=== PATIENT | male | born 1970 | race Two or more races ===

== ENCOUNTER 2024-07-11 08:13 | Outpatient (REF) | payer OTHER, SELFPAY ==
[2024-07-11 10:30] LABS: MANUAL DIFF FLAG NO
[2024-07-11 10:50] LABS: Alanine Aminotransferase 31 U/L (0-40); Albumin Level 4.9 g/dL (3.5-5.0); Alkaline Phosphatase 52 U/L (39-117); Anion Gap 13 (12-20); Aspartate Amino Transferase 27 U/L (5-37); Bilirubin Total 0.6 mg/dL (0.0-1.0); Blood Urea Nitrogen 15 mg/dL (9-16); Calcium 10.6 mg/dL (8.4-10.2); Carbon Dioxide 27 mmol/L (22-29); Chloride 107 mmol/L (96-108); Cholesterol 187 mg/dL (<200); Estimated Glomerular Filt Rate > 60; Glucose Random 92 mg/dL (60-115); HDL Cholesterol 41 mg/dL (>40); LDL Cholesterol Calculated 112 mg/dL (<100); Potassium 4.3 mmol/L (3.3-5.1); Sodium 143 mmol/L (135-145); Total Protein 8.1 g/dL (6.5-8.0); Triglycerides 172 mg/dL (<150)
[2024-07-11 11:22] LABS: Basophils Percent Auto 0.7 % (0-2); Eosinophils Absolute Auto 0.1 X10*3/uL (0.0-0.4); Eosinophils Percent Auto 1.3 % (0-4); Hematocrit 42.7 % (42.0-52.0); Hemoglobin 14.2 g/dl (14.0-18.0); Imm Gran Abs Auto 0.01 X10*3/uL (0.00-0.03); Imm Gran Pct Auto 0.2 % (0.0-0.4); Lymphocytes Absolute Auto 1.7 X10*3/uL (1.2-4.9); Lymphocytes Percent Auto 36.7 % (20-40); Mean Corpuscular HGB Conc 33.3 g/dl (31.0-36.0); Mean Corpuscular Volume 90.3 fL (80.0-98.0); Mean Platelet Volume 10.7 fL (9.4-12.4); Monocytes Absolute Auto 0.3 X10*3/uL (0.1-1.2); Monocytes Percent Auto 7.3 % (2-11); Neutrophils Absolute Auto 2.5 x10*3/uL (2.0-8.3); Neutrophils Percent Auto 53.8 % (45-73); Platelet Count 190 X10*3/uL (160-400); Red Blood Count 4.73 X10*6/uL (4.60-5.80); Red Cell Distribution Width 13.1 % (11.0-16.0); White Blood Count 4.6 X10*3/uL (4.8-10.8)
== END 2024-07-11 08:14 | disposition home or self-care (01) ==
LOC: HO.HMGCLDS 08:13
PROVIDERS: PCP Internal Medicine; Visit Provider Internal Medicine
DX: Z00.00 Encounter for general adult medical examination without abnormal findings (principal); E78.2 Mixed hyperlipidemia; I10 Essential (primary) hypertension; N40.0 Benign prostatic hyperplasia without lower urinary tract symptoms; Z12.31 Encounter for screening mammogram for malignant neoplasm of breast; Z12.5 Encounter for screening for malignant neoplasm of prostate
CPT/HCPCS: 36415; 80053; 80061; 84153; 85025

== ENCOUNTER 2024-11-07 08:07 | Outpatient (REF) | payer OTHER, SELFPAY ==
[2024-11-07 11:19] LABS: Parathyroid Hormone Intact 35.2 pg/mL (8.7-77.1)
[2024-11-07 12:01] LABS: Calcium 9.7 mg/dL (8.4-10.2); Cholesterol 179 mg/dL (<200); HDL Cholesterol 37 mg/dL (>40); LDL Cholesterol Calculated 90 mg/dL (<100); Phosphorus 3.6 mg/dL (2.7-4.5); Triglycerides 263 mg/dL (<150); Vitamin D 25-OH Total 33.5 ng/mL (>30)
== END 2024-11-07 08:08 | disposition home or self-care (01) ==
LOC: HO.HMGCLDS 08:07
PROVIDERS: PCP Internal Medicine; Visit Provider Internal Medicine
DX: E78.2 Mixed hyperlipidemia (principal); E83.52 Hypercalcemia; Z68.26 Body mass index [BMI] 26.0-26.9, adult
CPT/HCPCS: 36415; 80061; 82306; 82310; 83970; 84100

== ENCOUNTER 2025-03-06 08:10 | Day surgery (SDC) | payer OTHER, SELFPAY ==
[2025-03-04 14:32] VITALS: BMI 26.6
--- NOTE | 2025-03-05 11:44 | P.CONAN_ITS ---
HPI - Anesthesia Eval Consult details Narrative: 54yo M for Colonoscopy [facility] Past Medical History Medical History (Updated 03/04/25 @ 14:31 by Yasmeen Barrios, RN) Hx of gastritis HLD (hyperlipidemia) Surgical History Surgical History (Updated 03/04/25 @ 14:25 by Yasmeen Barrios, RN) History of esophagogastroduodenoscopy (EGD) Social History Social History (Updated 03/04/25 @ 14:38 by Yasmeen Barrios, HORTENCIA) Patient Tobacco Use Status: Former Tobacco user Meds Allergies Allergy/AdvReac Type Severity Reaction Status Date / Time No Known Allergies Allergy Verified 03/04/25 14:27 Home Medications ?Medication ?Instructions ?Recorded ?Confirmed ?Last Taken ?Type aspirin 81 mg tablet,delayed 81 mg PO DAILY 03/04/25 03/04/25 Unknown History release omega 2-zst-mlk-fish oil 1,000 mg 1 cap PO TID 03/04/25 03/04/25 Unknown History (120 mg-180 mg) capsule (Fish Oil) rosuvastatin 20 mg tablet 20 mg PO BEDTIME 03/04/25 03/04/25 Unknown History Exam Height,Weight and Vital Signs: Height 5 ft 8 in Weight 79.379 kg Assessment and Plan Assessment Anesthesia Assessment: Chart Reviewed
[2025-03-06 08:19] VITALS: BMI 25.8
[2025-03-06 08:28] VITALS: BP 110/65; PULSE 66; RESP 16; TEMP 36.4; O2SAT 97
[2025-03-06] MEDS: Lactated Ringers 1,000 ML 100 ML IVCONT (08:40)
[2025-03-06 11:03] VITALS: BP 90/53; PULSE 61; RESP 16; TEMP 36.3; O2SAT 96
--- NOTE | 2025-03-06 11:09 | PM.OP ---
Brief Operative Note Date of Service: 03/06/25 Pre-op diagnosis: Screening Post-op diagnosis: other (Colon polyps) Procedure: Colonoscopy to the cecum and TI with hot snare polypectomy at 40cm and cold snare polypectomy at 20cm Surgeon: Everton Dixon MD Anesthesia: MAC Was an Coper Hand used for this Procedure?: No Estimated blood loss (mL): 2.0 Pathology: other (A. Polyp at 40cm B. Polyp at 20cm) Condition: stable Disposition: PACU
[2025-03-06 11:16] VITALS: BP 92/59; PULSE 53; RESP 16; TEMP 36.1; O2SAT 96
--- NOTE | 2025-03-06 11:23 | OP_ITS ---
DATE OF SERVICE: 03/06/2025 SURGEON: Everton Dixon MD INDICATIONS: The patient presents for evaluation of colorectal cancer screening. Full consent has been obtained from him for this, including risks of bleeding and perforation. PREOPERATIVE DIAGNOSIS: Colorectal cancer screening. POSTOPERATIVE DIAGNOSIS: PROCEDURE PERFORMED: Colonoscopy to the cecum and terminal ileum with hot snare polypectomy x 1 and cold snare polypectomy x 1. ESTIMATED BLOOD LOSS: COMPLICATIONS: ANESTHESIA: Medication used; monitored anesthesia care. ASSISTANTS: SPECIMENS: POSTOPERATIVE DIAGNOSES: Colorectal cancer screening, colon polyps, occasional diverticulosis, internal hemorrhoids. DESCRIPTION OF PROCEDURE: The patient was placed in the left lateral decubitus position. The digital rectal exam revealed no abnormalities. The Olympus video pediatric colonoscope was entered into the rectum and advanced easily to the cecum. Once in the cecum, I did identify normal-appearing cecal pouch with appendiceal orifice and a normal-appearing ileocecal valve. The terminal ileum was cannulated and appeared normal. Scope withdrawn back in the colon. The entire cecum and ileocecal valve appeared normal. The scope was slowly withdrawn assessing all mucosal surfaces carefully. Preparation was excellent. At 40 cm, there was a flat, but raised approximately 10 mm grossly adenomatous polyp, which was removed by hot snare polypectomy and recovered by suction. The polypectomy site appeared clean, without any sign of residual polyp nor bleeding. At 20 cm, there was a flat, but raised approximately 5 mm polyp, which was removed by cold snare polypectomy and recovered by suction. The polypectomy site appeared clean, without any sign of residual polyp nor significant bleeding. I did not visualize any other polyps, colitis, nor angiodysplasia. There was an occasional diverticulum noted in the sigmoid colon. In the rectum, scope was retroflexed visualizing some small internal hemorrhoids, but no other pathology. The rectal mucosa appeared normal. Scope was straightened and withdrawn from the patient. He tolerated the procedure well and was returned to recovery area in stable condition. IMPRESSION: 1. Colon polyps. 2. Occasional diverticulosis. 3. Internal hemorrhoids. PLAN: The results of the pathology will be checked. If either of the polyps are a tubular adenoma I would recommend a followup colonoscopy in 5 years. If they are both hyperplastic, I would recommend a followup colonoscopy in 10 years. He was advised not to use any aspirin, NSAIDs, nor fish oil for 1 week. This has been discussed with his . MD AMBER Caldera/ZACHARY / [phone] WALTER
== END 2025-03-06 11:39 | disposition home or self-care (01) ==
PROVIDERS: PCP Internal Medicine; Visit Provider Internal Medicine
PROC: 0DJD8ZZ Inspection of Lower Intestinal Tract, Via Natural or Artificial Opening Endoscopic (ICD-10-PCS; CPT 45378; principal; 2025-03-06 09:30)
DX: Z12.11 Encounter for screening for malignant neoplasm of colon (principal); D12.5 Benign neoplasm of sigmoid colon; K57.30 Diverticulosis of large intestine without perforation or abscess without bleeding; K64.8 Other hemorrhoids; Z87.19 Personal history of other diseases of the digestive system; E78.5 Hyperlipidemia, unspecified; Z79.82 Long term (current) use of aspirin; Z79.899 Other long term (current) drug therapy; Z87.891 Personal history of nicotine dependence
CPT/HCPCS: 45385; 88305; J2003; J2704

== ENCOUNTER 2025-05-07 07:13 | Outpatient (REF) | payer OTHER, SELFPAY ==
[2025-05-07 11:22] LABS: Prostate Specific Antigen 0.93 ng/mL (<0.05-4.0)
[2025-05-07 11:33] LABS: Alanine Aminotransferase 36 U/L (0-40); Albumin Level 4.8 g/dL (3.5-5.0); Alkaline Phosphatase 51 U/L (39-117); Anion Gap 8 (12-20); Aspartate Amino Transferase 35 U/L (5-37); Blood Urea Nitrogen 13 mg/dL (9-16); Calcium 9.8 mg/dL (8.4-10.2); Carbon Dioxide 28 mmol/L (22-29); Chloride 109 mmol/L (96-108); Cholesterol 171 mg/dL (<200); Estimated Glomerular Filt Rate > 60; HDL Cholesterol 38 mg/dL (>40); Potassium 4.4 mmol/L (3.3-5.1); Sodium 141 mmol/L (135-145); Total Protein 7.6 g/dL (6.5-8.0); Triglycerides 157 mg/dL (<150)
[2025-05-07 11:35] LABS: Thyroid Stimulating Hormone 3.73 uIU/mL (0.32-4.0)
== END 2025-05-07 07:14 | disposition home or self-care (01) ==
LOC: HO.HMGCLDS 07:13
PROVIDERS: PCP Internal Medicine; Visit Provider Internal Medicine
DX: E78.2 Mixed hyperlipidemia (principal); E83.52 Hypercalcemia; Z12.5 Encounter for screening for malignant neoplasm of prostate
CPT/HCPCS: 36415; 80053; 80061; 84153; 84443